=== PATIENT | female | born 1945 | race Caucasian/White ===

== ENCOUNTER 2020-10-29 10:38 | Emergency (ER) | payer MEDICARE, OTHER, SELFPAY ==
--- NOTE | ~2020-10-29 | XR_ITS ---
EXAMINATION: XR SHOULDER, RIGHT CLINICAL INFORMATION: Atraumatic shoulder pain. COMPARISON: No similar priors. TECHNIQUE: Four views of the right shoulder. FINDINGS: No evidence of acute fractures or malalignment. The humeral head is well-seated in the glenoid. There are mild degenerative changes in the acromioclavicular joint with joint space narrowing and subcortical sclerosis. No abnormal soft tissue calcifications. The visualized right lung is clear. XR/XR shoulder RT min 2V IMPRESSION: No acute fractures or malalignment. Mild osteoarthritis of the right acromioclavicular joint.
[2020-10-29 10:46] VITALS: BP 146/87; PULSE 96; O2SAT 98
--- NOTE | 2020-10-29 10:49 | ED.EXTPRO ---
HPI - Extremity Problem General Chief complaint: Extremity Problem Stated complaint: R SHOULDER PAIN X'S 2 WEEKS Time Seen by Provider: 10/29/20 10:48 Source: patient and EMS Mode of arrival: EMS Limitations: no limitations History of Present Illness HPI Narrative: This is a 75-year-old female with a past medical history of prior SD, presents to the emergency department via EMS with complaints of atraumatic shoulder pain X1 month. She states that the shoulder pain has been localized to her right shoulder, does not radiate and only hurts when she moves her shoulder, she describes the pain as soreness. She states she is able to move it painfully, but she needs to help move it with her other hand. She has taken ibuprofen with little relief. She has not had any shoulder surgeries. She denies chest pain, shortness of breath, numbness, tingling, paresthesias, abdominal pain and nausea, vomiting, fevers, chills. She denies trauma to the area MD Complaint: extremity pain (Right shoulder) Onset (ago): month(s) (One month) Pain Consistency: constant Location: right Severity scale (1-10): 7 (With movement) Quality: other (Soreness) Radiation: none Relieving factors: medication Exacerbating factors: range of motion Associated symptoms: denies other symptoms Related Data Previous Rx's Medication Instructions Recorded lidocaine 5 % topical patch 1 patch TOPICAL DAILY PRN #15 ea 10/29/20 (Lidoderm) naproxen 500 mg tablet 500 mg PO BID PRN #20 tab 10/29/20 Allergies Allergy/AdvReac Type Severity Reaction Status Date / Time No Known Allergies Allergy Unknown UNKNOWN Verified 10/29/20 10:55 [NO KNOWN ALLERGIES] Review of Systems Review of Systems: Constitutional: No Fever, No Chills ENT/Mouth: No sore throat, No Rhinorrhea, No Swallowing Difficulty Cardiovascular: No Chest Pain, No SOB, No Orthopnea, No Edema Respiratory: No Cough, No Sputum, No Wheezing, No dyspnea Gastrointestinal: No Nausea, No Vomiting, No Diarrhea, No abdominal Pain Genitourinary: No Dysuria, No Urinary Frequency, No Hematuria Musculoskeletal: + joint pain (right shoulder), No Myalgias Skin: No Skin Lesions, No rash Neuro: No Weakness, No Numbness, No Dizziness, No Headache Heme/Lymph: No Bruising, No Lymphadenopathy Endocrine: No Polyuria, No Polydipsia [facility] Past Medical History Attestation statement: The following information was validated with the patient. [facility] Narrative: Patient reports previous SD 2 years ago Medical History (Updated 10/29/20 @ 11:51 by ESVIN Yuan) No known health problems Social History Social History Advance Directives: Yes Advance Directives Information Provided: No Advance Directives on File: No Physical Exam Vital Signs: Vital Signs: Last Vital Signs Temp 98.0 F 10/29/20 10:53 Pulse 88 10/29/20 10:53 Resp 18 10/29/20 10:53 BP 143/72 H 10/29/20 10:53 Pulse Ox 95 10/29/20 10:53 Body Mass Index 24.5 Appearance: Alert. Oriented X3. No acute distress. Eyes: Pupils equal, round and reactive to light. ENT: Pharynx normal. Neck: Normal inspection. Neck supple. CVS: Normal heart rate and rhythm. Pulses normal. Respiratory: No respiratory distress. Breath sounds normal. Abdomen: Soft and nontender. +BS x4 Skin: Skin warm and dry. Normal skin color. Normal skin turgor. No rashes. Extremities: No lower extremity edema. + pain with active and passive range of motion to right shoulder, worse with inversion and eversion. Good distal pulses, no numbness or paresthesias, cap refil < 2 seconds. No tenderness to palpation of right shoulder. No overlying skin changes Neuro: Oriented X 3. No motor deficit. No sensory deficit. Course Course Course Narrative: This is a 75-year-old female PMHX of SD, presenting to emergency department with right-sided shoulder pain and some progressing over the past month. She states that it hurts with movement, and it is better at rest. She also mentions that she uses her other hand to raise her arm overhead. She denies any trauma to the area. She denies any other symptoms. She denies fevers, chills, chest pain, shortness of breath, abdominal pain, nausea, vomiting, diarrhea. Plan at this time is to obtain an x-ray of the right shoulder, and an EKG to rule out cardiac etiology. Right shoulder x-ray shows no acute fractures or malalignment. There is mild osteoarthritis of the right acromioclavicular joint. Plan is to discharge patient with anti-inflammatory medication and a sling MDM - Extremity (Nontraumatic) Imaging Data Right shoulder x-ray: Attestation: I personally reviewed and interpreted this imaging study as follows: Radiologist's impression: FINDINGS: No evidence of acute fractures or malalignment. The humeral head is well-seated in the glenoid. There are mild degenerative changes in the acromioclavicular joint with joint space narrowing and subcortical sclerosis. No abnormal soft tissue calcifications. The visualized right lung is clear.? XR/XR shoulder RT min 2V IMPRESSION: No acute fractures or malalignment. Mild osteoarthritis of the right acromioclavicular joint. ECG Data Attestation EKG: I personally reviewed and interpreted this ECG as follows: ECG interpretation date: 10/29/20 ECG interpretation time: 11:43 Prior ECG tracings: available for review Interpretation: Ventricular rate 84, IA interval normal QRS normal QT/QTC normal. Normal sinus rhythm with left axis deviation and incomplete left bundle-branch block. No ST elevations, no T-wave inversions, no acute ischemia noted. When compared with previous EKSs (03/30/19, and 02/26/2019) there are no significant changes. Procedures Orthopedic Splinting/Casting Injury #1: Side: right Upper Extremity Injury Location: shoulder Upper Extremity Immobilizer: sling/shoulder immobilizer (sling) Discharge Plan Discharge Clinical Impression: Tendinitis of right shoulder Osteoarthritis of right shoulder Qualifiers: Osteoarthritis type: unspecified Qualified Code(s): M19.011 - Primary osteoarthritis, right shoulder Patient Disposition: Home, Self-Care Instructions: Rotator Cuff Tendinitis (ED), Osteoarthritis (ED) Additional Instructions: Please do [id number] exercises at home, like explained to you in the emergency department. Wear a sling for 1-2 days. You may remove it to sleep Taking medications as prescribed, these are anti-inflammatory medications that will help ear pain, and will help reduce inflammation to the area. Take these with food Your x-ray did not show any fractures today, it showed arthritis It is important for you to follow-up with her PCP within the next few days. Follow-up with orthopedics if your pain does not improve in 2-3 weeks. Return to the emergency department with new or worsening symptoms Prescriptions: New naproxen 500 mg tablet 500 mg PO BID PRN (Reason: pain) Qty: 20 RF: 0 lidocaine [Lidoderm] 5 % adhesive patch,medicated 1 patch topical DAILY PRN (Reason: pain) Qty: 15 RF: 0 Referrals: Jeet Grijalva MD [Physician] - 2 weeks (If pain does not resolve within 2-3 weeks) Patrice Seymour MD [Primary Care Provider] - 2 days
[2020-10-29 10:53] VITALS: BP 143/72; PULSE 88; RESP 18; TEMP 36.7; O2SAT 95; BMI 24.5
--- NOTE | 2020-10-29 11:01 | ECG_ITS ---
Test Reason : SHOULDER PAIN Blood Pressure : / mmHG Vent. Rate : 084 BPM Atrial Rate : 084 BPM P-R Int : 176 ms QRS Dur : 120 ms QT Int : 408 ms P-R-T Axes : 045 -48 063 degrees QTc Int : 482 ms Normal sinus rhythm Left axis deviation Incomplete left bundle branch block Abnormal ECG When compared with ECG of 30-MAR-2019 14:05, Incomplete left bundle branch block is now Present ST no longer elevated in Inferior leads Referred By: Rosalinda Donis Electronically Signed By:ESTELLE BREWER
== END 2020-10-29 12:24 | disposition home or self-care (01) ==
PROVIDERS: Emergency Provider Emergency Medicine; PCP Internal Medicine
DX: M19.011 Primary osteoarthritis, right shoulder (principal); M75.31 Calcific tendinitis of right shoulder; M25.511 Pain in right shoulder; Z79.899 Other long term (current) drug therapy
CPT/HCPCS: 29105; 73030; 93005; 99283; 99284

== ENCOUNTER 2020-11-28 09:46 | Observation (INO) | payer MEDICARE, OTHER, SELFPAY ==
[2020-11-28] VITALS (8 sets, daily range): BP systolic 98–154; BP diastolic 55–74; PULSE 76–92; RESP 15–18; TEMP 36.5–37.3; O2SAT 92–98; BMI 21.2
--- NOTE | ~2020-11-28 | XR_ITS ---
EXAMINATION: CR X-RAY CHEST AND BILATERAL SHOULDERS CLINICAL INFORMATION: Weakness and bilateral shoulder decreased range of motion COMPARISON: Chest radiographs dated 03/30/2019, right shoulder radiographs dated 10/29/2020, left shoulder MRI dated 12/07/2012. TECHNIQUE: A single view of the chest and 4 views each of the bilateral shoulders were obtained. FINDINGS: Chest: Mild linear markings are seen at the right lung base. Probable eventration of the right hemidiaphragm. The right upper lung field and left lung are clear. The heart and mediastinal structures are unremarkable. There is a moderate to large hiatal hernia. Right shoulder: Mild right acromioclavicular degenerative joint changes are seen. The glenohumeral joint is intact without significant degenerative changes. The soft tissues are unremarkable. Left shoulder: Post surgical changes are seen in the left shoulder with resection of the acromion. The distal left clavicle is intact. Glenohumeral joint is intact. The soft tissues are unremarkable. XR/XR shoulder RT min 2V IMPRESSION: 1. Mild right basilar linear atelectasis versus scarring with probable eventration of the right hemidiaphragm. No definitive acute abnormality. 2. Mild right acromioclavicular joint space narrowing with normal alignment. Degenerative in nature. No acute abnormality. 3. Post surgical changes in the left shoulder without overt acute abnormality.
--- NOTE | ~2020-11-28 | CT_ITS ---
EXAMINATION: CT HEAD WITHOUT CONTRAST CLINICAL INFORMATION: Generalized weakness, worse in the right upper extremity for 2 weeks. Confusion. Unsure if fell. COMPARISON: CT head 04/06/2016 TECHNIQUE: Contiguous axial imaging was performed from the skull base to vertex without intravenous administration of contrast. This CT examination was performed using dose optimization techniques as appropriate, variously including the following: *Automated exposure control *Adjustment of mA and/or kV according to patient size (this includes techniques or standardized protocols for targeted exams where dose is matched to indication/reason for exam; i.e. extremities or head) *Use of iterative reconstruction technique DLP: 617 mGy-cm FINDINGS: There is no evidence of acute intracranial hemorrhage or territorial infarction. No abnormal mass effect or midline shift is seen. There is a somewhat wedge-shaped region of hypoattenuation with volume loss involving the anterior limb of the left internal capsule and pericaudate with mild expected dilation of the frontal horn of the left lateral ventricle corresponding with a prior infarction, late subacute to chronic. Bobo to white matter differentiation is otherwise well preserved. No extra-axial fluid collections are identified. There is a 3 mm calcification within the sylvian fissure (image 108, series 3) which was not seen on prior studies, though is of doubtful clinical significance. 2 additional similar cortical calcifications are seen along the posterior aspect of the corpus callosum (image 100, series 3). Other than the above-noted relative dilation of the frontal horn of the left lateral ventricle, ventricles and cortical sulci are normal in size and symmetric. The osseous structures and soft tissues are normal. The mastoid air cells and visualized portions of the paranasal sinuses are well aerated. CT/CT head/brain wo con IMPRESSION: Hypoattenuation in volume loss involving the anterior limb of the left internal capsule corresponding with a prior infarction not seen on the prior study. The region may correspond with the patient's right-sided weakness.
--- NOTE | ~2020-11-28 | XR_ITS ---
EXAMINATION: CR X-RAY CHEST AND BILATERAL SHOULDERS CLINICAL INFORMATION: Weakness and bilateral shoulder decreased range of motion COMPARISON: Chest radiographs dated 03/30/2019, right shoulder radiographs dated 10/29/2020, left shoulder MRI dated 12/07/2012. TECHNIQUE: A single view of the chest and 4 views each of the bilateral shoulders were obtained. FINDINGS: Chest: Mild linear markings are seen at the right lung base. Probable eventration of the right hemidiaphragm. The right upper lung field and left lung are clear. The heart and mediastinal structures are unremarkable. There is a moderate to large hiatal hernia. Right shoulder: Mild right acromioclavicular degenerative joint changes are seen. The glenohumeral joint is intact without significant degenerative changes. The soft tissues are unremarkable. Left shoulder: Post surgical changes are seen in the left shoulder with resection of the acromion. The distal left clavicle is intact. Glenohumeral joint is intact. The soft tissues are unremarkable. XR/XR chest 1V IMPRESSION: 1. Mild right basilar linear atelectasis versus scarring with probable eventration of the right hemidiaphragm. No definitive acute abnormality. 2. Mild right acromioclavicular joint space narrowing with normal alignment. Degenerative in nature. No acute abnormality. 3. Post surgical changes in the left shoulder without overt acute abnormality.
--- NOTE | ~2020-11-28 | XR_ITS ---
EXAMINATION: CR X-RAY CHEST AND BILATERAL SHOULDERS CLINICAL INFORMATION: Weakness and bilateral shoulder decreased range of motion COMPARISON: Chest radiographs dated 03/30/2019, right shoulder radiographs dated 10/29/2020, left shoulder MRI dated 12/07/2012. TECHNIQUE: A single view of the chest and 4 views each of the bilateral shoulders were obtained. FINDINGS: Chest: Mild linear markings are seen at the right lung base. Probable eventration of the right hemidiaphragm. The right upper lung field and left lung are clear. The heart and mediastinal structures are unremarkable. There is a moderate to large hiatal hernia. Right shoulder: Mild right acromioclavicular degenerative joint changes are seen. The glenohumeral joint is intact without significant degenerative changes. The soft tissues are unremarkable. Left shoulder: Post surgical changes are seen in the left shoulder with resection of the acromion. The distal left clavicle is intact. Glenohumeral joint is intact. The soft tissues are unremarkable. XR/XR shoulder LT min 2V IMPRESSION: 1. Mild right basilar linear atelectasis versus scarring with probable eventration of the right hemidiaphragm. No definitive acute abnormality. 2. Mild right acromioclavicular joint space narrowing with normal alignment. Degenerative in nature. No acute abnormality. 3. Post surgical changes in the left shoulder without overt acute abnormality.
--- NOTE | 2020-11-28 10:11 | ECG_ITS ---
Test Reason : weakness Blood Pressure : / mmHG Vent. Rate : 085 BPM Atrial Rate : 085 BPM P-R Int : 158 ms QRS Dur : 074 ms QT Int : 382 ms P-R-T Axes : 037 006 017 degrees QTc Int : 454 ms Normal sinus rhythm Low voltage QRS Intra-ventricular conduction delay Nonspecific T wave abnormality Anterior leads Abnormal ECG QRS duration has decreased T wave inversion more evident in Anterior leads Clinical Correlation Advised Referred By: Sylvia Rivas Electronically Signed By:CR BEAN MD
--- NOTE | 2020-11-28 10:44 | ED.WEAKNESS ---
HPI - Weakness General Chief complaint: Weakness Stated complaint: GENERAL WEAKNESS X 2 WEEKS Time Seen by Provider: 11/28/20 10:07 Source: patient and EMS Mode of arrival: EMS History of Present Illness HPI Narrative: 75-year-old female with a PMHx of prior IA, presenting to the ED complaining of generalized weakness, greater in RUE x2 weeks. Reports unable to lift arms secondary to pain/weakness. Denies fever, chills, cough, CP/SOB, abdominal pain, nausea/vomiting, dysuria/hematuria, falls. Lives home alone, at baseline ambulates with walker Related Data Home Medications Medication Instructions Recorded Confirmed alprazolam 0.5 mg tablet 1 tab PO BID PRN 11/28/20 11/28/20 atorvastatin 80 mg tablet 1 tab PO DAILY 11/28/20 11/28/20 cholestyramine-aspartame 4 gram 0.5 ea PO DAILY 11/28/20 11/28/20 oral powder (Cholestyramine Light) dicyclomine 10 mg capsule 1 cap PO TID 11/28/20 11/28/20 lisinopril 10 mg tablet 1 tab PO DAILY 11/28/20 11/28/20 metoprolol tartrate 25 mg tablet 1 tab PO BID 11/28/20 11/28/20 ticagrelor 90 mg tablet (Brilinta) 1 tab PO BID 11/28/20 11/28/20 tramadol 50 mg tablet 1 tab PO BID PRN 11/28/20 11/28/20 Allergies Allergy/AdvReac Type Severity Reaction Status Date / Time No Known Allergies Allergy Unknown UNKNOWN Verified 10/29/20 10:55 [NO KNOWN ALLERGIES] Review of Systems Review of Systems: Constitutional: No Fever, No Chills,No Fatigue, No Malaise ENT/Mouth: No Ear Pain, No sore throat, No Rhinorrhea Eyes: No Eye Pain, No Swelling, No Redness Cardiovascular: No Chest Pain, No SOB Respiratory: No Cough, No Dyspnea Gastrointestinal: No Nausea, No Vomiting, No Diarrhea, No Constipation, No Abdominal pain Genitourinary: No Dysuria, No Urinary Frequency, No Hematuria, No Flank Pain Musculoskeletal: No joint pain, No Myalgias, No Joint Swelling Skin: No Skin Lesions, No rash Neuro: + Weakness, No Numbness, No Paresthesias, No Loss of Consciousness, No Dizziness, No Headache Yes all other systems are reviewed and are negative Neurologic: Denies Abnormal speech present [facility] Past Medical History Attestation statement: The following information was validated with the patient. Medical History (Updated 11/28/20 @ 12:35 by ESVIN [place]) No known health problems Social History Social History Advance Directives: No Advance Directives Information Provided: No Physical Exam Vital Signs: Vital Signs: Last Vital Signs Temp 99.2 F 11/28/20 09:48 Pulse 84 11/28/20 10:15 Resp 17 11/28/20 10:15 BP 143/74 H 11/28/20 10:15 Pulse Ox 97 11/28/20 10:15 Body Mass Index 21.2 Const: General: cooperative and healthy appearing Orientation/consciousness: oriented to person and oriented to place HENMT: Head: Yes normal to inspection and Yes atraumatic Ears: hearing grossly normal bilaterally General nose exam: Normal external nose present Face and sinus: Yes normal facial exam Eyes: General: appearance normal, both eyes and all related structures Pupils: Equal, round and reactive pupils present EOM: EOMs intact bilaterally Neck: Neck: Yes normal visual inspection and Yes no meningeal signs Resp: Effort & Inspection: normal respiratory effort Auscultation: clear to auscultation bilaterally, no rales, no rhonchi and no wheezes Cardio: Rate: regular rate Heart sounds: S1 normal heart sound present and S2 normal heart sound present GI: Inspection: Yes normal to inspection Palpation (GI): Soft to palpation, nontender, no guarding and not rigid Skin: Rashes: no rashes Wounds: no wounds Neuro: General: oriented to person, oriented to place, tone normal, moves all extremities, no meningeal signs, no focal motor deficits and CN's II-XI intact bilaterally Cranial nerves: Yes Equal, round and reactive pupils present Speech: No Abnormal speech present Gait exam (Neuro): Normal gait present Motor exam (neuro): 5/5 motor strength present throughout and no tremor noted Extrem: Other: + bilateral shoulder tenderness and decreased ROM General: Yes normal to inspection Course Course Course Narrative: -1158--no leukocytosis, labs otherwise unremarkable. UA infected >> IV Rocephin ordered -1230--CT head/brain wo con IMPRESSION: Hypoattenuation in volume loss involving the anterior limb of the left internal capsule corresponding with a prior infarction not seen on the prior study. The region may correspond with the patient's right-sided weakness. XR chest 1V / XR shoulder LT min 2V / XR shoulder RT min 2V IMPRESSION: 1. Mild right basilar linear atelectasis versus scarring with probable eventration of the right hemidiaphragm. No definitive acute abnormality. 2. Mild right acromioclavicular joint space narrowing with normal alignment. Degenerative in nature. No acute abnormality. 3. Post surgical changes in the left shoulder without overt acute abnormality. ? >> plan is for admission MDM - Weakness MDM Narrative Medical decision making narrative: 75-year-old female with a PMHx of prior IA, presenting to the ED complaining of generalized weakness, greater in RUE x2 weeks. On exam vital signs stable, NAD, A&O x2, confused, bilateral shoulder tenderness with decreased ROM of bilateral arms, exam otherwise nonfocal. Concern for CVA vs metabolic abnormalities or infectious etiology. Plan: EKG, labs, UA, CXR, head CT, anticipated admission Medical Records Attestation: I reviewed the patient's medical records. Lab Data Attestation: I reviewed the patient's lab results. Result diagrams: 11/28/20 10:58 11/28/20 10:58 Labs: Lab Results 11/28/20 11/28/20 11/28/20 Range/Units 10:58 10:58 10:58 WBC 9.0 (4.8-10.8) X10*3/uL RBC 3.94 L (4.20-5.50) X10*6/uL Hgb 12.0 (12.0-16.0) g/dl Hct 36.9 L (37-47) % MCV 93.7 (80-98) fL MCH 30.5 (27.0-33.0) pg MCHC 32.5 (31.0-35.0) g/dl RDW 12.9 (11.0-16.0) % Plt Count 275 (160-400) X10*3/uL MPV 9.6 (9.4-12.3) fL Immature Gran % (Auto) 0.3 (0.0-0.4) % Neut % (Auto) 82.9 H (45-73) % Lymph % (Auto) 9.3 L (20-40) % [place] % (Auto) 6.6 (2-11) % Eos % (Auto) 0.7 (0-4) % Baso % (Auto) 0.2 (0-2) % Lymph # (Auto) 0.8 L (1.2-4.9) X10*3/uL [place] # (Auto) 0.6 (0.1-1.2) X10*3/uL Eos # (Auto) 0.1 (0.0-0.4) X10*3/uL Baso # (Auto) 0.0 (0.0-0.2) X10*3/uL Abs Immat Gran (auto) 0.03 (0.00-0.03) X10*3/uL Absolute Neuts (auto) 7.5 (2.0-8.3) X10*3/uL Absolute Nucleated RBC 0.000 (0.0-0.012) X10*3/uL Nucleated RBC % (auto) 0.0 (0.0-0.2) /100WBC Sodium 139 (135-145) mmol/L Potassium 4.2 (3.3-5.1) mmol/L Chloride 104 (96-108) mmol/L Carbon Dioxide 23 (22-29) mmol/L Anion Gap 16 (12-20) BUN 13 (9-16) mg/dL Creatinine 0.65 (0.5-1.4) mg/dL Estim Creat Clear Calc 72.7 Estimated GFR > 60 Random Glucose 101 (60-115) mg/dL Calcium 8.5 (8.4-10.2) mg/dL Magnesium 1.8 (1.6-2.6) mg/dL Total Bilirubin 0.6 (0.0-1.0) mg/dL Direct Bilirubin 0.2 (0.0-0.5) mg/dL AST 24 (5-31) U/L ALT 15 (0-31) U/L Alkaline Phosphatase 109 (39-117) U/L Troponin I High Sens 8.6 (<3.5-17.0) ng/L Total Protein 7.0 (6.5-8.0) g/dL Albumin 3.7 (3.5-5.0) g/dL Lipase 13 (8-78) U/L Urine Color Urine Appearance Urine pH (5.0-8.0) Ur Specific [place] (1.005-1.025) Urine Protein (NEG-TRACE) MG/DL Urine Glucose (UA) (NEG) MG/DL Urine Ketones (NEG) MG/DL Urine Blood (NEG) Urine Nitrite (NEG) Ur Leukocyte Esterase (NEG) Urine RBC (0) /HPF Urine WBC (0-4) /HPF Ur Squamous Epith Cells /LPF Urine Bacteria /LPF Urine Mucus /LPF COVID-19 ([facility]) (Negative) COVID-19 Clin Com 11/28/20 11/28/20 Range/Units 10:59 10:59 WBC (4.8-10.8) X10*3/uL RBC (4.20-5.50) X10*6/uL Hgb (12.0-16.0) g/dl Hct (37-47) % MCV (80-98) fL MCH (27.0-33.0) pg MCHC (31.0-35.0) g/dl RDW (11.0-16.0) % Plt Count (160-400) X10*3/uL MPV (9.4-12.3) fL Immature Gran % (Auto) (0.0-0.4) % Neut % (Auto) (45-73) % Lymph % (Auto) (20-40) % [place] % (Auto) (2-11) % Eos % (Auto) (0-4) % Baso % (Auto) (0-2) % Lymph # (Auto) (1.2-4.9) X10*3/uL [place] # (Auto) (0.1-1.2) X10*3/uL Eos # (Auto) (0.0-0.4) X10*3/uL Baso # (Auto) (0.0-0.2) X10*3/uL Abs Immat Gran (auto) (0.00-0.03) X10*3/uL Absolute Neuts (auto) (2.0-8.3) X10*3/uL Absolute Nucleated RBC (0.0-0.012) X10*3/uL Nucleated RBC % (auto) (0.0-0.2) /100WBC Sodium (135-145) mmol/L Potassium (3.3-5.1) mmol/L Chloride (96-108) mmol/L Carbon Dioxide (22-29) mmol/L Anion Gap (12-20) BUN (9-16) mg/dL Creatinine (0.5-1.4) mg/dL Estim Creat Clear Calc Estimated GFR Random Glucose (60-115) mg/dL Calcium (8.4-10.2) mg/dL Magnesium (1.6-2.6) mg/dL Total Bilirubin (0.0-1.0) mg/dL Direct Bilirubin (0.0-0.5) mg/dL AST (5-31) U/L ALT (0-31) U/L Alkaline Phosphatase (39-117) U/L Troponin I High Sens (<3.5-17.0) ng/L Total Protein (6.5-8.0) g/dL Albumin (3.5-5.0) g/dL Lipase (8-78) U/L Urine Color YELLOW Urine Appearance CLEAR Urine pH 6.0 (5.0-8.0) Ur Specific [place] <= 1.005 (1.005-1.025) Urine Protein NEG (NEG-TRACE) MG/DL Urine Glucose (UA) NEG (NEG) MG/DL Urine Ketones NEG (NEG) MG/DL Urine Blood TRACE (NEG) Urine Nitrite NEG (NEG) Ur Leukocyte Esterase 3+ H (NEG) Urine RBC 0-2 (0) /HPF Urine WBC 10-14 H (0-4) /HPF Ur Squamous Epith Cells 1+ /LPF Urine Bacteria TRACE /LPF Urine Mucus TRACE /LPF COVID-19 ([facility]) Negative (Negative) COVID-19 Clin Com See Note Discharge Plan Discharge Clinical Impression: Acute UTI, AMS (altered mental status), Weakness, CVA (cerebral vascular accident) Patient Disposition: Admitted As Inpatient Prescriptions: No Action atorvastatin 80 mg tablet 1 tab PO DAILY RF: 0 tramadol 50 mg tablet 1 tab PO BID PRN (Reason: Pain) RF: 0 alprazolam 0.5 mg tablet 1 tab PO BID PRN (Reason: Anxiety) RF: 0 lisinopril 10 mg tablet 1 tab PO DAILY RF: 0 dicyclomine 10 mg capsule 1 cap PO TID RF: 0 metoprolol tartrate 25 mg tablet 1 tab PO BID RF: 0 Cholestyramine Light 4 gram powder 0.5 ea PO DAILY RF: 0 Brilinta 90 mg tablet 1 tab PO BID RF: 0
[2020-11-28 11:04] LABS: MANUAL DIFF FLAG NO
[2020-11-28 11:06] LABS: Basophils Percent Auto 0.2 % (0-2); Eosinophils Absolute Auto 0.1 X10*3/uL (0.0-0.4); Eosinophils Percent Auto 0.7 % (0-4); Hematocrit 36.9 % (37-47); Imm Gran Abs Auto 0.03 X10*3/uL (0.00-0.03); Imm Gran Pct Auto 0.3 % (0.0-0.4); Lymphocytes Absolute Auto 0.8 X10*3/uL (1.2-4.9); Lymphocytes Percent Auto 9.3 % (20-40); Mean Corpuscular HGB Conc 32.5 g/dl (31.0-35.0); Mean Corpuscular Hemoglobin 30.5 pg (27.0-33.0); Mean Corpuscular Volume 93.7 fL (80-98); Mean Platelet Volume 9.6 fL (9.4-12.3); Monocytes Absolute Auto 0.6 X10*3/uL (0.1-1.2); Monocytes Percent Auto 6.6 % (2-11); Neutrophils Absolute Auto 7.5 X10*3/uL (2.0-8.3); Neutrophils Percent Auto 82.9 % (45-73); Platelet Count 275 X10*3/uL (160-400); Red Blood Count 3.94 X10*6/uL (4.20-5.50); Red Cell Distribution Width 12.9 % (11.0-16.0)
[2020-11-28 11:18] LABS: Appearance Urine CLEAR; Color Urine YELLOW; Glucose Urine UA NEG (NEG); Leukocyte Esterase Urine 3+ (NEG); Nitrite Urine NEG (NEG); Specific Gravity - Urine <= 1.005 (1.005-1.025); UACC Culture Trigger YES; Urine Blood TRACE (NEG); Urine Ketones NEG (NEG); Urine Protein NEG (NEG-TRACE)
[2020-11-28 11:26] LABS: Alanine Aminotransferase 15 U/L (0-31); Albumin Level 3.7 g/dL (3.5-5.0); Alkaline Phosphatase 109 U/L (39-117); Anion Gap 16 (12-20); Aspartate Amino Transferase 24 U/L (5-31); Bilirubin Direct 0.2 mg/dL (0.0-0.5); Bilirubin Total 0.6 mg/dL (0.0-1.0); Blood Urea Nitrogen 13 mg/dL (9-16); Calcium 8.5 mg/dL (8.4-10.2); Carbon Dioxide 23 mmol/L (22-29); Chloride 104 mmol/L (96-108); Creatinine Clr Calc Pharmacy 72.7; Estimated Glomerular Filt Rate > 60; Glucose Random 101 mg/dL (60-115); Lipase 13 U/L (8-78); Magnesium 1.8 mg/dL (1.6-2.6); Potassium 4.2 mmol/L (3.3-5.1); Sodium 139 mmol/L (135-145)
[2020-11-28 11:28] LABS: Troponin-I High Sensitivity 8.6 ng/L (<3.5-17.0)
--- NOTE | 2020-11-28 11:39 | PC.NURSE ---
pt c/o generalized weakness that is worse in her RUE than her left that started in October. she reports that she is unable to lift her arms because of the pain and weakness. she denies chest pain/sob/ fever/chills/cough. no abdominal pain, nausea/vomiting. pt lives at home alone, she ambulates with a walker. Pt denies falling. pt has positive bilateral shoulder tenderness and decreased rom. vss. pt alert, oriented x3.
[2020-11-28 11:41] LABS: RBC Urine 0-2 /HPF (0)
[2020-11-28 11:42] LABS: Bacteria Urine TRACE /LPF; Mucus Urine TRACE /LPF; Squamous Epithelial Cell Urine 1+ /LPF
[2020-11-28 11:48] LABS: COVID-19 Test Negative (Negative)
--- NOTE | 2020-11-28 12:15 | PC.NURSE ---
pt alert and oriented, vss. pt requested to go to the restroom multiple times, she was ambulated to the restroom with minimal assist from staff. denies sob/headache/dizziness. Commode place at her bedside. Pt seen by Physical Therapy. lunch given. vss.
[2020-11-28] MEDS: cefTRIAXone sodium 1 GM in 0.9 % Sodium Chloride 50 ML IV (12:46)
[2020-11-28] MEDS: Acetaminophen 325 MG TABLET 650 MG PO ×2 (13:59→20:36)
--- NOTE | 2020-11-28 14:10 | P.HPHOSP_ITS ---
History of Present Illness Date of Service: 11/28/20 <ESVIN Valentine - Last Filed: 11/28/20 14:49> Attending physician on admission: Hussein Thomas <ESVIN Valentine - Last Filed: 11/28/20 14:49> Chief Complaint: Generalized weakness; right shoulder pain <ESVIN Valentine - Last Filed: 11/28/20 14:49> This a 70 female with history of CAD/STEMI in March 2019, anxiety, hypertension who presents to the ED with weakness. She said today she was feeling weak. Because she lives by herself and does not have any family she did not know what to do so she called 911 and they brought her to the emergency department. She denies any specific symptoms including chest pain, shortness of breath, abdominal pain, nausea, vomiting or dysuria. She does not endorse right shoulder pain which has been ongoing for the past 1 month. She was evaluated for shoulder pain in the emergency department on October 29 and diagnosed with osteoarthritis. She was discharged home with plans to follow-up with ortho, she has an appointment scheduled for later this year. She denies any change in her right arm pain. She does report that the pain radiates down her right arm into all of her fingers including her thumb. She has decreased range of motion at her right shoulder. She denies any speech difficulties or vision changes. Basic labs were done and were unremarkable. A urinalysis was checked and was noted to have positive leuk esterase and white cells and that she was given a dose of IV ceftriaxone. She had a CT scan of her brain which showed a hypodensity which was not present on her previous brain CT from 2017. Due to this abnormality admission was requested for further workup. <ESVIN Valentine - Last Filed: 11/28/20 14:49> Review of Systems Review of Systems: Yes all other systems are reviewed and are negative <ESVIN Valentine Last Filed: 11/28/20 14:49> Constitutional: Constitutional: Denies chills, Denies fever(s) and Reports weakness <ESVIN Valentine Last Filed: 11/28/20 14:49> Eyes: Eyes: Denies change in vision <ESVIN Valentine Last Filed: 11/28/20 14:49> ENT: Denies dysphagia <ESVIN Valentine - Last Filed: 11/28/20 14:49> Cardiovascular: Cardiovascular: Denies chest pain <ESVIN Valentine - Last Filed: 11/28/20 14:49> Respiratory: Respiratory: Denies cough <ESVIN Valentine - Last Filed: 11/28/20 14:49> Gastrointestinal: Gastrointestinal: Denies abdominal pain, Denies dysphagia, Denies nausea and Denies vomiting <ESVIN Valentine - Last Filed: 11/28/20 14:49> Genitourinary: Genitourinary: Denies dysuria <ESVIN Valentine - Last Filed: 11/28/20 14:49> Neurologic: Reports weakness <ESVIN Valentine - Last Filed: 11/28/20 14:49> FOR[facility]LY [facility] Medical History: Medical History (Updated 11/29/20 @ 13:07 by ESVIN Valentine) Anxiety CAD (coronary artery disease) HTN (hypertension) IBS (irritable bowel syndrome) Osteoarthritis <ESVIN Valentine - Last Filed: 11/28/20 14:49> Functional capacity: uses cane/walker <ESVIN Valentine - Last Filed: 11/28/20 14:49> Pertinent family history: no known history of CAD <ESVIN Valentine - Last Filed: 11/28/20 14:49> Surgical History: Surgical History (Updated 11/28/20 @ 14:23 by ESVIN Valentine) History of cholecystectomy <ESVIN Valentine - Last Filed: 11/28/20 14:49> Social History: Social History (Updated 11/28/20 @ 14:23 by ESVIN Valentine) Household Members: None Alcohol intake: former Patient Tobacco Use Status: Former Tobacco user service: No Current occupational status: retired and disabled <ESVIN Valentine - Last Filed: 11/28/20 14:49> Meds Allergies/Adverse reactions: Allergies Allergy/AdvReac Type Severity Reaction Status Date / Time No Known Allergies Allergy Unknown UNKNOWN Verified 10/29/20 10:55 [NO KNOWN ALLERGIES] <ESVIN Valentine - Last Filed: 11/28/20 14:49> Active Medications: Current Medications Acetaminophen (Acetaminophen 325 Mg Tablet) 650 mg PO Q6H PRN PRN Reason: Pain, Mild (Pain Scale 1-3) Alprazolam (Alprazolam 0.5 Mg Tablet) 0.5 mg PO BID PRN PRN Reason: Anxiety Atorvastatin Calcium (Atorvastatin Calcium 80 Mg Tablet) 80 mg PO DAILY ASHU Dicyclomine HCl (Dicyclomine Hcl 10 Mg Capsule) 10 mg PO TID ASHU Docusate Sodium (Docusate Sodium 100 Mg Capsule) 100 mg PO DAILY PRN PRN Reason: Constipation Heparin Sodium (Porcine) (Heparin Sodium,Porcine 5,000 Unit/Ml Vial) 5,000 unit SUBCUT Q12H ASHU Lisinopril (Lisinopril 10 Mg Tablet) 10 mg PO DAILY ASHU; Protocol Metoprolol Tartrate (Metoprolol Tartrate 25 Mg Tablet) 25 mg PO BID ASHU; Protocol Non-Formulary Medication (Cholestyramine-Aspartame [Cholestyramine Light]) 0.5 each PO DAILY ASHU Ondansetron HCl (Ondansetron Hcl 4 Mg/2 Ml Vial) 4 mg IVPUSH Q8H PRN PRN Reason: Nausea and Vomiting Pharmacy Consult (Consult Rx Perform Med Rec) 1 each MISCELLANE ONCE PRN PRN Reason: Consult order Sodium Chloride (0.9 % Sodium Chloride Flush 3 Ml Syringe) 3 ml IVFLUSH QSHIFT [facility] Ticagrelor (Ticagrelor 90 Mg Tablet) 90 mg PO BID [facility] Tramadol HCl (Tramadol Hcl 50 Mg Tablet) 50 mg PO BID PRN PRN Reason: Pain <ESVIN Valentine - Last Filed: 11/28/20 14:49> Home medications: Home Medications Medication Instructions Recorded Confirmed Last Taken Type alprazolam 0.5 mg tablet 1 tab PO BID PRN 11/28/20 11/28/20 11/28/20 History atorvastatin 80 mg tablet 1 tab PO DAILY 11/28/20 11/28/20 11/28/20 History cholestyramine-aspartame 4 gram 0.5 ea PO DAILY 11/28/20 11/28/20 11/28/20 History oral powder (Cholestyramine Light) dicyclomine 10 mg capsule 1 cap PO TID 11/28/20 11/28/20 11/28/20 History lisinopril 10 mg tablet 1 tab PO DAILY 11/28/20 11/28/20 11/28/20 History metoprolol tartrate 25 mg tablet 1 tab PO BID 11/28/20 11/28/20 11/28/20 History ticagrelor 90 mg tablet (Brilinta) 1 tab PO BID 11/28/20 11/28/20 11/28/20 History tramadol 50 mg tablet 1 tab PO BID PRN 11/28/20 11/28/20 11/28/20 History <ESVIN Valentine Last Filed: 11/28/20 14:49> Physical Exam Vital Signs and Narrative: Vital Signs: Last Vital Signs Temp 99.2 F 11/28/20 09:48 Pulse 84 11/28/20 10:15 Resp 17 11/28/20 10:15 BP 143/74 H 11/28/20 10:15 Pulse Ox 97 11/28/20 10:15 Body Mass Index 21.2 <ESVIN Valentine - Last Filed: 11/28/20 14:49> Const: General: cooperative, comfortable, no acute distress, alert and awake <ESVIN Valentine Last Filed: 11/28/20 14:49> Orientation/consciousness: patient oriented x3 <ESVIN Valentine Last Filed: 11/28/20 14:49> HENMT: Head: Yes normal to inspection <ESVIN Valentine Last File d: 11/28/20 14:49> Eyes: Sclerae: sclerae normal <ESVIN Valentine Last Filed: 11/28/20 14:49> Pupils: Equal, round and reactive pupils present <ESVIN Valentine Last Filed: 11/28/20 14:49> EOM: EOMs intact bilaterally <ESVIN Valentine Last Filed: 11/28/20 14:49> Resp: Effort & Inspection: normal respiratory effort and able to speak in complete sentences <ESVIN Valenitne Last Filed: 11/28/20 14:49> Auscultation: clear to auscultation bilaterally <ESVIN Valentine - Last Filed: 11/28/20 14:49> Cardio: Rate: regular rate <ESVIN Valentine - Last Filed: 11/28/20 14:49> Rhythm: regular rhythm <ESVIN Valentine - Last Filed: 11/28/20 14:49> GI: Palpation (GI): Soft to palpation and nontender <ESVIN Valentine - Last Filed: 11/28/20 14:49> Neuro: General: patient oriented x3 <ESVIN Valentine - Last Filed: 11/28/20 14:49> Cranial nerves: Yes CN's II-XII intact bilaterally, Yes Equal, round and reactive pupils present and Yes Midline tongue present <ESVIN Valentine - Last Filed: 11/28/20 14:49> Extrem: Other: no leg edema;RUE ROM limited with AROM and PROM; equal integration analyst strength b/l; b/l legs with equal strength b/l <ESVIN Valentine - Last Filed: 11/28/20 14:49> Results Labs CBC and Chem 7: : 11/28/20 10:58 11/28/20 10:58 <ESVIN Valentine - Last Filed: 11/28/20 14:49> Labs: Laboratory Results - last 24 hr 11/28/20 11/28/20 11/28/20 10:58 10:58 10:58 MCV 93.7 MCH 30.5 MCHC 32.5 RDW 12.9 Plt Count 275 MPV 9.6 Immature Gran % (Auto) 0.3 Neut % (Auto) 82.9 H Lymph % (Auto) 9.3 L [place] % (Auto) 6.6 Eos % (Auto) 0.7 Baso % (Auto) 0.2 Lymph # (Auto) 0.8 L [place] # (Auto) 0.6 Eos # (Auto) 0.1 Baso # (Auto) 0.0 Abs Immat Gran (auto) 0.03 Absolute Neuts (auto) 7.5 Absolute Nucleated RBC 0.000 Nucleated RBC % (auto) 0.0 Anion Gap 16 Estim Creat Clear Calc 72.7 Estimated GFR > 60 Random Glucose 101 Calcium 8.5 Magnesium 1.8 Total Bilirubin 0.6 Direct Bilirubin 0.2 AST 24 ALT 15 Alkaline Phosphatase 109 Troponin I High Sens 8.6 Total Protein 7.0 Albumin 3.7 Lipase 13 Urine Color Urine Appearance Urine pH Ur Specific Downs Urine Protein Urine Glucose (UA) Urine Ketones Urine Blood Urine Nitrite Ur Leukocyte Esterase Urine RBC Urine WBC Ur Squamous Epith Cells Urine Bacteria Urine Mucus COVID-19 ([facility]) COVID-19 Clin Com 11/28/20 11/28/20 10:59 10:59 MCV MCH MCHC RDW Plt Count MPV Immature Gran % (Auto) Neut % (Auto) Lymph % (Auto) [place] % (Auto) Eos % (Auto) Baso % (Auto) Lymph # (Auto) [place] # (Auto) Eos # (Auto) Baso # (Auto) Abs Immat Gran (auto) Absolute Neuts (auto) Absolute Nucleated RBC Nucleated RBC % (auto) Anion Gap Estim Creat Clear Calc Estimated GFR Random Glucose Calcium Magnesium Total Bilirubin Direct Bilirubin AST ALT Alkaline Phosphatase Troponin I High Sens Total Protein Albumin Lipase Urine Color YELLOW Urine Appearance CLEAR Urine pH 6.0 Ur Specific Downs <= 1.005 Urine Protein NEG Urine Glucose (UA) NEG Urine Ketones NEG Urine Blood TRACE Urine Nitrite NEG Ur Leukocyte Esterase 3+ H Urine RBC 0-2 Urine WBC 10-14 H Ur Squamous Epith Cells 1+ Urine Bacteria TRACE Urine Mucus TRACE COVID-19 ([facility]) Negative COVID-19 Clin Com See Note <ESVIN Valentine - Last Filed: 11/28/20 14:49> Imaging Radiologist's Impressions: Impressions Head CT 11/28/20 10:35 IMPRESSION: Hypoattenuation in volume loss involving the anterior limb of the left internal capsule corresponding with a prior infarction not seen on the prior study. The region may correspond with the patient's right-sided weakness. Chest X-Ray 11/28/20 10:36 IMPRESSION: 1. Mild right basilar linear atelectasis versus scarring with probable eventration of the right hemidiaphragm. No definitive acute abnormality. 2. Mild right acromioclavicular joint space narrowing with normal alignment. Degenerative in nature. No acute abnormality. 3. Post surgical changes in the left shoulder without overt acute abnormality. Shoulder X-Ray 11/28/20 10:48 IMPRESSION: 1. Mild right basilar linear atelectasis versus scarring with probable eventration of the right hemidiaphragm. No definitive acute abnormality. 2. Mild right acromioclavicular joint space narrowing with normal alignment. Degenerative in nature. No acute abnormality. 3. Post surgical changes in the left shoulder without overt acute abnormality. Shoulder X-Ray 11/28/20 10:48 IMPRESSION: 1. Mild right basilar linear atelectasis versus scarring with probable eventration of the right hemidiaphragm. No definitive acute abnormality. 2. Mild right acromioclavicular joint space narrowing with normal alignment. Degenerative in nature. No acute abnormality. 3. Post surgical changes in the left shoulder without overt acute abnormality. <ESVIN Valentine - Last Filed: 11/28/20 14:49> Assessment and Plan (1) Abnormal brain CT: Status: Acute <ESVIN Valentine - Last Filed: 11/28/20 14:49> This is a 75-year-old female with a history of hypertension, anxiety, CAD/STEMI, osteoarthritis who presents to the emergency department with generalized weakness found to have abnormality on brain CT Abnormal brain CT Hypoattenuation involving the anterior limb of the left internal capsule not seen on previous brain CT from 2016 No focal neurological deficits noted Continue home Brilinta, statin Neurology consult Right arm pain Likely related to osteoarthritis although does have radiation into hand PT eval Continue with scheduled ortho appointment as outpatient pyuria no symptoms of UTI given ceftriaxone empirically in ED FU UCx CAD h/o STEMI treated at [facility] in Mar 2019 Continue lopressor, brilinta, lipitor HTN continue Lisinopril, lopressor dvt - heparin code status - full code attending: dr. thomas <ESVIN Valentine - Last Filed: 11/28/20 14:49> This is a 75-year-old female with a history of hypertension, anxiety, CAD/STEMI, osteoarthritis who presents to the emergency department with generalized weakness found to have abnormality on brain CT Abnormal brain CT Hypoattenuation involving the anterior limb of the left internal capsule not seen on previous brain CT from 2017 No focal neurological deficits noted Continue home Brilinta, statin Neurology consult Right arm pain Likely related to osteoarthritis although does have radiation into hand PT eval Continue with scheduled ortho appointment as outpatient pyuria no symptoms of UTI given ceftriaxone empirically in ED FU UCx CAD h/o STEMI treated at [facility] in Mar 2019 Continue lopressor, brilinta, lipitor HTN continue Lisinopril, lopressor dvt - heparin code status - full code attending: dr. thomas I saw and examined the patient with mid level provider, we discussed findings inlucding labs, imaging, medication, assessment and plan and I agree with above <Husseinraisa Thomas MD - Last Filed: 11/30/20 16:45> Quality Stroke Does the patient have a stroke diagnosis?: No <ESVIN Valentine - Last Filed: 11/28/20 14:49> VTE Prior VTE?: No <ESVIN Valentine - Last Filed: 11/28/20 14:49> VTE Risk Level:: Medical - moderate - high <ESVIN Valentine - Last Filed: 11/28/20 14:49> VTE Device Contraindication: N/A - Device Ordered <ESVIN Valentine - Last Filed: 11/28/20 14:49> VTE Drug Contraindication: N/A - Med Ordered <ESVIN Valentine - Last Filed: 11/28/20 14:49>
--- NOTE | 2020-11-28 15:36 | PC.NURSE ---
pt admitted to [facility] room 4444, report given to ANUP Veliz. Pt will be transported to the unit by remotely operated vehicle. Pt aware of plan of care.
[2020-11-28] MEDS: Heparin Sodium,Porcine 5,000 UNIT/ML VIAL 5000 UNIT SUBCUT (16:36)
[2020-11-28] MEDS: Dicyclomine HCl 10 MG CAPSULE PO ×2 (16:36→20:36)
[2020-11-28] MEDS: 0.9 % Sodium Chloride Flush 3 ML SYRINGE IVFLUSH ×2 (16:37→20:36)
[2020-11-28] MEDS: traMADoL HCL 50 MG TABLET PO (16:47)
[2020-11-28] MEDS: Metoprolol Tartrate 25 MG TABLET PO (20:36)
[2020-11-28] MEDS: Ticagrelor 90 MG TABLET PO (20:36)
[2020-11-28] MEDS: ALPRAZolam 0.5 MG TABLET PO (20:39)
[2020-11-29 03:13] VITALS: BP 141/70; PULSE 67; RESP 20; TEMP 37.1; O2SAT 98
[2020-11-29 07:13] VITALS: BP 150/74; PULSE 82; RESP 18; TEMP 36.2; O2SAT 94
[2020-11-29 07:55] VITALS: BP 150/74; PULSE 82
[2020-11-29] MEDS: lisinopriL 10 MG TABLET PO (07:55)
[2020-11-29] MEDS: Dicyclomine HCl 10 MG CAPSULE PO ×2 (07:55→13:24)
[2020-11-29] MEDS: Acetaminophen 325 MG TABLET 650 MG PO (07:55)
[2020-11-29] MEDS: Ticagrelor 90 MG TABLET PO (07:55)
[2020-11-29 07:56] VITALS: BP 150/74; PULSE 82
[2020-11-29] MEDS: Metoprolol Tartrate 25 MG TABLET PO (07:56)
[2020-11-29] MEDS: Cholestyramine (With Sugar) 4 GM POWD.PACK 2 GM PO (07:56)
[2020-11-29] MEDS: Atorvastatin Calcium 80 MG TABLET PO (07:56)
[2020-11-29] MEDS: 0.9 % Sodium Chloride Flush 3 ML SYRINGE IVFLUSH (07:56)
[2020-11-29] MEDS: traMADoL HCL 50 MG TABLET PO (07:59)
--- NOTE | 2020-11-29 10:19 | MHC.CM.PN ---
Patient lives in apartment alone. Has [facility] for observation (patient's words) 1x's week, no other services and owns walker and cane; does not drive. Emily Sheffield takes her to appointments when she can. Per MD this am, patient may need SNF for D/C, but needs a PT eval first. D/C plan TBD. HCP completed today with patient and two case advocate and furnished in chart. CM to follow.
--- NOTE | 2020-11-29 10:25 | HO.PM.IMPN ---
Subjective Subjective Date of Service: 11/29/20 Interval History: seen and examined this morning follow up for right arm/shoulder pain/abnormal brain CT sill having right shoulder pain. no dysuria; no confusion Review of Systems Review of Systems: Yes all other systems are reviewed and are negative Constitutional Constitutional: Denies chills and Denies fever(s) Cardiovascular Cardiovascular: Denies chest pain and Denies palpitations Respiratory Respiratory: Denies cough Gastrointestinal Gastrointestinal: Denies abdominal pain, Denies diarrhea, Denies nausea and Denies vomiting Genitourinary Genitourinary: Denies dysuria and Denies urinary urgency Endocrine Endocrine: Denies palpitations Physical Exam Vital Signs: Vital Signs: Last Vital Signs Temp 97.2 F 11/29/20 07:13 Pulse 82 11/29/20 07:56 Resp 18 11/29/20 07:13 BP 150/74 H 11/29/20 07:56 Pulse Ox 94 11/29/20 07:13 Body Mass Index 21.2 Const: General: cooperative, comfortable, no acute distress, alert and awake Orientation/consciousness: patient oriented x3 HENMT: Head: Yes normal to inspection Eyes: Sclerae: sclerae normal Pupils: Equal, round and reactive pupils present EOM: EOMs intact bilaterally Resp: Effort & Inspection: normal respiratory effort and able to speak in complete sentences Auscultation: clear to auscultation bilaterally Cardio: Rate: regular rate Rhythm: regular rhythm GI: Palpation (GI): Soft to palpation and nontender Neuro: General: patient oriented x3 Cranial nerves: Yes CN's II-XII intact bilaterally, Yes Equal, round and reactive pupils present and Yes Midline tongue present Extrem: Other: no leg edema;RUE ROM limited with AROM and PROM; equal documentation nurse strength b/l; b/l legs with equal strength b/l; Left shoulder also with decreased ROM Objective Data Active Medications Acetaminophen (Acetaminophen 325 Mg Tablet) 650 mg PO Q6H PRN PRN Reason: Pain, Mild (Pain Scale 1-3) Last Admin: 11/29/20 07:55 Dose: 650 mg Documented by: DARIAN Alprazolam (Alprazolam 0.5 Mg Tablet) 0.5 mg PO BID PRN PRN Reason: Anxiety Last Admin: 11/28/20 20:39 Dose: 0.5 mg Documented by: GIOVANI Atorvastatin Calcium (Atorvastatin Calcium 80 Mg Tablet) 80 mg PO DAILY [facility] Last Admin: 11/29/20 07:56 Dose: 80 mg Documented by: DARIAN Cholestyramine Resin (Cholestyramine (With Sugar) 4 Gm Powd.Pack) 2 gm PO DAILY [facility] Last Admin: 11/29/20 07:56 Dose: 2 gm Documented by: DARIAN Dicyclomine HCl (Dicyclomine Hcl 10 Mg Capsule) 10 mg PO TID [facility] Last Admin: 11/29/20 07:55 Dose: 10 mg Documented by: DARIAN Docusate Sodium (Docusate Sodium 100 Mg Capsule) 100 mg PO DAILY PRN PRN Reason: Constipation Heparin Sodium (Porcine) (Heparin Sodium,Porcine 5,000 Unit/Ml Vial) 5,000 unit SUBCUT Q12H [facility] Last Admin: 11/29/20 02:44 Dose: Not Given Documented by: ANTRONNIE Non-Admin Reason: Patient Asleep Lisinopril (Lisinopril 10 Mg Tablet) 10 mg PO DAILY [facility]; Protocol Last Admin: 11/29/20 07:55 Dose: 10 mg Documented by: DARIAN Metoprolol Tartrate (Metoprolol Tartrate 25 Mg Tablet) 25 mg PO BID [facility]; Protocol Last Admin: 11/29/20 07:56 Dose: 25 mg Documented by: DARIAN Ondansetron HCl (Ondansetron Hcl 4 Mg/2 Ml Vial) 4 mg IVPUSH Q8H PRN PRN Reason: Nausea and Vomiting Pharmacy Consult (Consult Rx Perform Med Rec) 1 each MISCELLANE ONCE PRN PRN Reason: Consult order Sodium Chloride (0.9 % Sodium Chloride Flush 3 Ml Syringe) 3 ml IVFLUSH QSHIFT [facility] Last Admin: 11/29/20 07:56 Dose: 3 ml Documented by: DARIAN Ticagrelor (Ticagrelor 90 Mg Tablet) 90 mg PO BID [facility] Last Admin: 11/29/20 07:55 Dose: 90 mg Documented by: DARIAN Tramadol HCl (Tramadol Hcl 50 Mg Tablet) 50 mg PO BID PRN PRN Reason: Pain Last Admin: 11/29/20 07:59 Dose: 50 mg Documented by: DARIAN Labs CBC & Chem 7: 11/28/20 10:58 11/28/20 10:58 Labs: Laboratory Results - last 24 hr 11/28/20 11/28/20 11/28/20 10:58 10:58 10:58 MCV 93.7 MCH 30.5 MCHC 32.5 RDW 12.9 Plt Count 275 MPV 9.6 Immature Gran % (Auto) 0.3 Neut % (Auto) 82.9 H Lymph % (Auto) 9.3 L Greene % (Auto) 6.6 Eos % (Auto) 0.7 Baso % (Auto) 0.2 Lymph # (Auto) 0.8 L Greene # (Auto) 0.6 Eos # (Auto) 0.1 Baso # (Auto) 0.0 Abs Immat Gran (auto) 0.03 Absolute Neuts (auto) 7.5 Absolute Nucleated RBC 0.000 Nucleated RBC % (auto) 0.0 Anion Gap 16 Estim Creat Clear Calc 72.7 Estimated GFR > 60 Random Glucose 101 Calcium 8.5 Magnesium 1.8 Total Bilirubin 0.6 Direct Bilirubin 0.2 AST 24 ALT 15 Alkaline Phosphatase 109 Troponin I High Sens 8.6 Total Protein 7.0 Albumin 3.7 Lipase 13 Urine Color Urine Appearance Urine pH Ur Specific [place] Urine Protein Urine Glucose (UA) Urine Ketones Urine Blood Urine Nitrite Ur Leukocyte Esterase Urine RBC Urine WBC Ur Squamous Epith Cells Urine Bacteria Urine Mucus COVID-19 ([facility]) COVID-19 Clin Com 11/28/20 11/28/20 10:59 10:59 MCV MCH MCHC RDW Plt Count MPV Immature Gran % (Auto) Neut % (Auto) Lymph % (Auto) Greene % (Auto) Eos % (Auto) Baso % (Auto) Lymph # (Auto) Greene # (Auto) Eos # (Auto) Baso # (Auto) Abs Immat Gran (auto) Absolute Neuts (auto) Absolute Nucleated RBC Nucleated RBC % (auto) Anion Gap Estim Creat Clear Calc Estimated GFR Random Glucose Calcium Magnesium Total Bilirubin Direct Bilirubin AST ALT Alkaline Phosphatase Troponin I High Sens Total Protein Albumin Lipase Urine Color YELLOW Urine Appearance CLEAR Urine pH 6.0 Ur Specific [place] <= 1.005 Urine Protein NEG Urine Glucose (UA) NEG Urine Ketones NEG Urine Blood TRACE Urine Nitrite NEG Ur Leukocyte Esterase 3+ H Urine RBC 0-2 Urine WBC 10-14 H Ur Squamous Epith Cells 1+ Urine Bacteria TRACE Urine Mucus TRACE COVID-19 ([facility]) Negative COVID-19 Clin Com See Note Assessment and Plan (1) Abnormal brain CT: Status: Acute (2) Right shoulder pain: Status: Acute Assessment and Plan: This is a 75-year-old female with a history of hypertension, anxiety, CAD/STEMI, osteoarthritis who presents to the emergency department with generalized weakness found to have abnormality on brain CT Abnormal brain CT Hypoattenuation involving the anterior limb of the left internal capsule not seen on previous brain CT from 2017 No focal neurological deficits noted Continue home Brilinta, statin Neurology consult Right arm pain Likely related to osteoarthritis PT eval Continue with scheduled ortho appointment as outpatient pyuria no symptoms of UTI given ceftriaxone empirically in ED FU UCx CAD h/o STEMI treated at [facility] in Mar 2019 Continue lopressor, brilinta, lipitor HTN continue Lisinopril, lopressor dvt - heparin code status - full code dispo - will need PT eval due to limited mobility b/l upper extremities attending: dr. Pfeiffer Quality Stroke Does the patient have a stroke diagnosis?: No VTE Prior VTE?: No VTE Risk Level:: Medical - moderate - high VTE Device Contraindication: N/A - Device Ordered VTE Drug Contraindication: N/A - Med Ordered
[2020-11-29 11:40] VITALS: BP 111/53; PULSE 76; RESP 17; TEMP 36.3; O2SAT 95
--- NOTE | 2020-11-29 12:40 | PM.NEUROCN ---
History of Present Illness Data of Consult Service Date: 11/29/20 Primary Care Provider: Unknown Physician HPI Reason for consult: generalized weakness 75 yr woman with h/o anxiety and right shoulder pain admitted with generalized weakness with no focality. UA shows evidence of UTI, rest normal. 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 It may well have been silent because of its location. It has no bearing to her current complaints. Review of Systems Review of Systems: Constitutional: No Fever, No Chills,No Fatigue, No Malaise ENT/Mouth: No Ear Pain, No sore throat, No Rhinorrhea Eyes: No Eye Pain, No Swelling, No Redness Cardiovascular: No Chest Pain, No SOB Respiratory: No Cough, No Dyspnea Gastrointestinal: No Nausea, No Vomiting, No Diarrhea, No Constipation, No Abdominal pain Genitourinary: No Dysuria, No Urinary Frequency, No Hematuria, No Flank Pain Musculoskeletal: No joint pain, No Myalgias, No Joint Swelling Skin: No Skin Lesions, No rash Neuro: + Weakness, No Numbness, No Paresthesias, No Loss of Consciousness, No Dizziness, No Headache Yes all other systems are reviewed and are negative Constitutional: Constitutional: Denies chills, Denies fever(s) and Reports weakness Eyes: Eyes: Denies change in vision ENT: Denies dysphagia Cardiovascular: Cardiovascular: Denies chest pain and Denies palpitations Respiratory: Respiratory: Denies cough Gastrointestinal: Gastrointestinal: Denies abdominal pain, Denies dysphagia, Denies diarrhea, Denies nausea and Denies vomiting Neurologic: Denies Abnormal speech present and Reports weakness Endocrine: Endocrine: Denies palpitations [facility] Past Medical History Medical History (Updated 11/29/20 @ 10:34 by ESVIN Valentine) Anxiety CAD (coronary artery disease) HTN (hypertension) IBS (irritable bowel syndrome) Osteoarthritis Functional capacity: uses cane/walker Family History Pertinent family history: no known history of CAD Surgical History Surgical History (Updated 11/28/20 @ 14:23 by ESVIN Valentine) History of cholecystectomy Social History Social History (Updated 11/28/20 @ 14:23 by ESVIN Valentine) Household Members: None Alcohol intake: former Patient Tobacco Use Status: Former Tobacco user Smoked in Last 30 Days: No Use of substances other than those prescribed or required for medical reasons: No Advance Directives: No Advance Directives Information Provided: No service: No Current occupational status: retired and disabled Meds Allergies Allergy/AdvReac Type Severity Reaction Status Date / Time No Known Allergies Allergy Unknown UNKNOWN Verified 10/29/20 10:55 [NO KNOWN ALLERGIES] Active Medications: Current Medications Acetaminophen (Acetaminophen 325 Mg Tablet) 650 mg PO Q6H PRN PRN Reason: Pain, Mild (Pain Scale 1-3) Last Admin: 11/29/20 07:55 Dose: 650 mg Documented by: Alprazolam (Alprazolam 0.5 Mg Tablet) 0.5 mg PO BID PRN PRN Reason: Anxiety Last Admin: 11/28/20 20:39 Dose: 0.5 mg Documented by: Atorvastatin Calcium (Atorvastatin Calcium 80 Mg Tablet) 80 mg PO DAILY [facility] Last Admin: 11/29/20 07:56 Dose: 80 mg Documented by: Cholestyramine Resin (Cholestyramine (With Sugar) 4 Gm Powd.Pack) 2 gm PO DAILY [facility] Last Admin: 11/29/20 07:56 Dose: 2 gm Documented by: Dicyclomine HCl (Dicyclomine Hcl 10 Mg Capsule) 10 mg PO TID [facility] Last Admin: 11/29/20 07:55 Dose: 10 mg Documented by: Docusate Sodium (Docusate Sodium 100 Mg Capsule) 100 mg PO DAILY PRN PRN Reason: Constipation Heparin Sodium (Porcine) (Heparin Sodium,Porcine 5,000 Unit/Ml Vial) 5,000 unit SUBCUT Q12H [facility] Last Admin: 11/29/20 02:44 Dose: Not Given Documented by: Lisinopril (Lisinopril 10 Mg Tablet) 10 mg PO DAILY [facility]; Protocol Last Admin: 11/29/20 07:55 Dose: 10 mg Documented by: Metoprolol Tartrate (Metoprolol Tartrate 25 Mg Tablet) 25 mg PO BID [facility]; Protocol Last Admin: 11/29/20 07:56 Dose: 25 mg Documented by: Ondansetron HCl (Ondansetron Hcl 4 Mg/2 Ml Vial) 4 mg IVPUSH Q8H PRN PRN Reason: Nausea and Vomiting Pharmacy Consult (Consult Rx Perform Med Rec) 1 each MISCELLANE ONCE PRN PRN Reason: Consult order Sodium Chloride (0.9 % Sodium Chloride Flush 3 Ml Syringe) 3 ml IVFLUSH QSHIFT [facility] Last Admin: 11/29/20 07:56 Dose: 3 ml Documented by: Ticagrelor (Ticagrelor 90 Mg Tablet) 90 mg PO BID [facility] Last Admin: 11/29/20 07:55 Dose: 90 mg Documented by: Tramadol HCl (Tramadol Hcl 50 Mg Tablet) 50 mg PO BID PRN PRN Reason: Pain Last Admin: 11/29/20 07:59 Dose: 50 mg Documented by: Home Medications Medication Instructions Recorded Confirmed Last Taken Type alprazolam 0.5 mg tablet 1 tab PO BID PRN 11/28/20 11/28/20 11/28/20 History atorvastatin 80 mg tablet 1 tab PO DAILY 11/28/20 11/28/20 11/28/20 History cholestyramine-aspartame 4 gram 0.5 ea PO DAILY 11/28/20 11/28/20 11/28/20 History oral powder (Cholestyramine Light) dicyclomine 10 mg capsule 1 cap PO TID 11/28/20 11/28/20 11/28/20 History lisinopril 10 mg tablet 1 tab PO DAILY 11/28/20 11/28/20 11/28/20 History metoprolol tartrate 25 mg tablet 1 tab PO BID 11/28/20 11/28/20 11/28/20 History ticagrelor 90 mg tablet (Brilinta) 1 tab PO BID 11/28/20 11/28/20 11/28/20 History tramadol 50 mg tablet 1 tab PO BID PRN 11/28/20 11/28/20 11/28/20 History Physical Exam Vital Signs: Vital Signs: Last Vital Signs Temp 97.3 F 11/29/20 11:40 Pulse 76 11/29/20 11:40 Resp 17 11/29/20 11:40 BP 111/53 L 11/29/20 11:40 Pulse Ox 95 11/29/20 11:40 Body Mass Index 21.2 Const: General: cooperative, healthy appearing, comfortable, no acute distress, alert and awake Orientation/consciousness: oriented to person, oriented to place and patient oriented x3 HENMT: Head: Yes normal to inspection and Yes atraumatic Ears: hearing grossly normal bilaterally General nose exam: Normal external nose present Face and sinus: Yes normal facial exam Eyes: General: appearance normal, both eyes and all related structures Sclerae: sclerae normal Pupils: Equal, round and reactive pupils present EOM: EOMs intact bilaterally Neck: Neck: Yes normal visual inspection and Yes no meningeal signs Resp: Effort & Inspection: normal respiratory effort and able to speak in complete sentences Auscultation: clear to auscultation bilaterally, no rales, no rhonchi and no wheezes Cardio: Rate: regular rate Rhythm: regular rhythm Heart sounds: S1 normal heart sound present and S2 normal heart sound present GI: Inspection: Yes normal to inspection Palpation (GI): Soft to palpation, nontender, no guarding and not rigid Skin: Rashes: no rashes Wounds: no wounds Neuro: Other: Non focal General: oriented to person, oriented to place, patient oriented x3, tone normal, moves all extremities, no meningeal signs, no focal motor deficits and CN's II-XI intact bilaterally Cranial nerves: Yes CN's II-XII intact bilaterally, Yes Equal, round and reactive pupils present and Yes Midline tongue present Speech: No Abnormal speech present Gait exam (Neuro): Normal gait present Motor exam (neuro): 5/5 motor strength present throughout and no tremor noted Extrem: Other: no leg edema;RUE ROM limited with AROM and PROM; equal assessment services manager strength b/l; b/l legs with equal strength b/l; Left shoulder also with decreased ROM General: Yes normal to inspection Results Labs CBC & Chem 7: 11/28/20 10:58 11/28/20 10:58 Microbiology Microbiology Results: Microbiology 11/28/20 Unknown Urine clean catch - Clean Catch Midstream Urine Culture - Final Assessment and Plan (1) Abnormal brain CT: Status: Acute CT brain shows old/ 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 It may well have been silent because of its location. It has no bearing to her current complaints. (2) Right shoulder pain: Status: Acute MRI C spine to r/o cervical root compression C6 (3) Acute UTI: Status: Acute treat UTI This is a 75-year-old female with a history of hypertension, anxiety, CAD/STEMI, osteoarthritis who presents to the emergency department with generalized weakness found to have abnormality on brain CT Abnormal brain CT Hypoattenuation involving the anterior limb of the left internal capsule not seen on previous brain CT from 2017 No focal neurological deficits noted Continue home Brilinta, statin Neurology consult Right arm pain Likely related to osteoarthritis PT eval Continue with scheduled ortho appointment as outpatient pyuria no symptoms of UTI given ceftriaxone empirically in ED FU UCx CAD h/o STEMI treated at [facility] in Mar 2019 Continue lopressor, brilinta, lipitor HTN continue Lisinopril, lopressor dvt - heparin code status - full code dispo - will need PT eval due to limited mobility b/l upper extremities attending: dr. Pfeiffer Procedures Date of Service Date of Service: 11/29/20
--- NOTE | 2020-11-29 13:07 | PM.DS ---
DS: Providers Provider Date of Service: 11/29/20 Date of admission: 11/28/20 14:00 Date of discharge: 11/29/20 Primary care physician: Unknown Physician Consults: 11/28/20 14:00 Consult to Neurology Routine Consulting Provider: [facility] Reason for consultation: abnormal brain CT; generalized weakness; right arm pain Has provider been notified: No Attending physician on discharge: Austyn Pfeiffer Discharging clinician: Juana Cortes DS: Diagnosis Discharge Diagnosis (1) Abnormal brain CT: Status: Acute (2) Right shoulder pain: Status: Acute DS: Summary Hospital Course Hospital Course: From H&P on day of admission This a 70 female with history of CAD/STEMI in March 2019, anxiety, hypertension who presents to the ED with weakness.? She said today she was feeling weak. Because she lives by herself and does not have any family she did not know what to do so she called 911 and they brought her to the emergency department.? She denies any specific symptoms including chest pain, shortness of breath, abdominal pain, nausea, vomiting or dysuria.? She does not endorse right shoulder pain which has been ongoing for the past 1 month.? She was evaluated for shoulder pain in the emergency department on October 29 and diagnosed with osteoarthritis.? She was discharged home with plans to follow-up with ortho, she has an appointment scheduled for later this year.? She denies any change in her right arm pain.? She does report that the pain radiates down her right arm into all of her fingers including her thumb.? She has decreased range of motion at her right shoulder.? She denies any speech difficulties or vision changes.? Basic labs were done and were unremarkable.? A urinalysis was checked and was noted to have positive leuk esterase and white cells and that she was given a dose of IV ceftriaxone.? She had a CT scan of her brain which showed a hypodensity which was not present on her previous brain CT from 2017. Due to this abnormality admission was requested for further workup. She was admitted to telemetry for close monitoring given abnormal brain CT. She was not noted to have any focal neurological deficits. She was evaluated by Neurology who agreed that her CT scan was consistent with an old stroke. No further workup was required. Patient had no symptoms of UTI and her urine culture returned negative. Right shoulder pain is likely secondary to osteoarthritis. She was evaluated by Physical therapy who recommended home with PT services. She is recommended to follow up with her PCP for additional home services if she qualifies. She has an appointment with Orthopedics scheduled for later this year which she is encouraged to keep. She can continue to use Ultram at home as needed for pain or alternatively may use Tylenol. Time Spent with Patient Time attestation: Total time spent providing and/or coordinating discharge services: Discharge coordination time: Greater than 30 minutes Quality: Stroke Does the patient have a stroke diagnosis?: No Physical Exam Vital Signs: Vital Signs: Last Vital Signs Temp 97.3 F 11/29/20 11:40 Pulse 76 11/29/20 11:40 Resp 17 11/29/20 11:40 BP 111/53 L 11/29/20 11:40 Pulse Ox 95 11/29/20 11:40 Body Mass Index 21.2 Const: General: cooperative, comfortable, no acute distress, alert and awake Orientation/consciousness: patient oriented x3 HENMT: Head: Yes normal to inspection Eyes: Sclerae: sclerae normal Pupils: Equal, round and reactive pupils present EOM: EOMs intact bilaterally Resp: Effort & Inspection: normal respiratory effort and able to speak in complete sentences Auscultation: clear to auscultation bilaterally Cardio: Rate: regular rate Rhythm: regular rhythm GI: Palpation (GI): Soft to palpation and nontender Neuro: General: patient oriented x3 Cranial nerves: Yes CN's II-XII intact bilaterally, Yes Equal, round and reactive pupils present and Yes Midline tongue present Extrem: Other: no leg edema;RUE ROM limited with AROM and PROM; equal law enforcement instructor strength b/l; b/l legs with equal strength b/l; Left shoulder also with decreased ROM Discharge Plan Discharge Patient Disposition: Home Health Service Discharge Diagnosis: chronic stroke Right shoulder pain Referrals: Physician,Unknown J [Primary Care Provider] - 1 Week Discharge Medications: Continued atorvastatin 80 mg tablet 1 tab PO DAILY [facility]: 0 tramadol 50 mg tablet 1 tab PO BID PRN (Reason: Pain) RF: 0 alprazolam 0.5 mg tablet 1 tab PO BID PRN (Reason: Anxiety) RF: 0 lisinopril 10 mg tablet 1 tab PO DAILY RF: 0 dicyclomine 10 mg capsule 1 cap PO TID [facility]: 0 metoprolol tartrate 25 mg tablet 1 tab PO BID RF: 0 Cholestyramine Light 4 gram powder 0.5 ea PO DAILY [facility]: 0 Brilinta 90 mg tablet 1 tab PO BID RF: 0 Discharge Orders: Discharge Order (Routine); Ordered 11/29/20 Ordered By: Juana Cortes Diet: advance to usual diet Activity on Discharge: As tolerated Stand Alone Forms: Patient Portal Discharge page Care Plan Goals: stay healthy and out of the hospital Health Concerns: Right shoulder pain Stroke Plan of Treatment: Your CT scan of the brain shows evidence of an old stroke. There were no new changes. No further workup required at this time Shoulder pain. Likely secondary to osteoarthritis. He will be discharged home with home physical therapy. Please keep outpatient appointment with Orthopedics. You can continue to use ultram for pain or use tylenol. Assessment: 75 year old female admitted for abnormal brain CT found to have chronic stroke
--- NOTE | 2020-11-29 13:23 | MHC.CM.PN ---
D/C order; home w/home health. Met with patient, she is in agreement for [facility]. Will place referral.
[2020-11-29] MEDS: oxyCODONE HCl Immed Release 5 MG TABLET PO (13:24)
--- NOTE | 2020-11-29 13:26 | W.MHC.F2F ---
Service Date Service Date: 11/29/20 Encounter Date of encounter: 11/29/20 Reasons for Services Reason for physical therapy: home safety and mobility, therapeutic exercises and restore joint function Overseeing Care: Patrice Seymour Homebound: Leaving the home is medically contraindicated at this time without the asist of a device and/or another person due th the listed conditions above and below. Reason homebound: pain with ambulation and poor balance / fall risk Certification: Based on the above findings, I certify that this patient is confined to the home and needs intermittent nursing home care, physical therapy and/or speech therapy, or continues to need occupational therapy. The patient is under my care, and I have initiated the establishment of the plan of care. The patient will be followed by a physician who will periodically review the plan of care.
--- NOTE | 2020-11-29 13:27 | MHC.CM.PN ---
Reviewed D/C plan with patient's nurse; patient would need VNA who could offer [employer]: goal to increase amount of [facility] services in the home (self care, nutrition, etc), [employer] [employer] to work with [facility] to increase services following D/C. Patient in agreement with additional referral to [facility].
--- NOTE | 2020-11-29 14:47 | MHC.CM.PN ---
Referrals out to 3 [facility]NAs; [facility] only response w/a behavioral health nurse conducting duties of older adult social work specialist in the home. [facility] to admit patient on to services for tomorrow. Transport scheduled for patient today for 3:0o pm worm picker to home.
== END 2020-11-29 15:02 | disposition home health service (06) ==
LOC: HO.ED 12:35 → HO.EDOVER 14:14 → HO.IMC 14:19
PROVIDERS: Physician Assistant; Admitting Provider Physician Assistant Medical; Emergency Provider Emergency Medicine; PCP Internal Medicine; Visit Provider Physician Assistant Medical
DX: R90.89 Other abnormal findings on diagnostic imaging of central nervous system (principal); M25.511 Pain in right shoulder; N39.0 Urinary tract infection, site not specified; R41.82 Altered mental status, unspecified; R53.1 Weakness; G93.89 Other specified disorders of brain; I21.3 ST elevation (STEMI) myocardial infarction of unspecified site; I25.119 Atherosclerotic heart disease of native coronary artery with unspecified angina pectoris; I10 Essential (primary) hypertension; F41.9 Anxiety disorder, unspecified; Z20.822 Contact with and (suspected) exposure to COVID-19; Z87.891 Personal history of nicotine dependence; Z86.73 Personal history of transient ischemic attack (TIA), and cerebral infarction without residual deficits; Z91.81 History of falling; Z90.49 Acquired absence of other specified parts of digestive tract; Z23 Encounter for immunization; Z79.899 Other long term (current) drug therapy
CPT/HCPCS: 36415; 70450; 71045; 73030; 80048; 80076; 81001; 83690; 83735; 84484; 85025; 87086; 87635; 90471; 90686; 93005; 96365; 96372; 96375; 97161; 99219; 99285; J0696

== ENCOUNTER → 2021-01-11 11:25 | Outpatient (BNVA) | payer MEDICARE, OTHER, SELFPAY | PROVIDERS: PCP Internal Medicine; Visit Provider Orthopaedic Surgery | DX: M75.101 Unspecified rotator cuff tear or rupture of right shoulder, not specified as traumatic (principal); M12.811 Other specific arthropathies, not elsewhere classified, right shoulder; M12.812 Other specific arthropathies, not elsewhere classified, left shoulder; M75.102 Unspecified rotator cuff tear or rupture of left shoulder, not specified as traumatic | CPT/HCPCS: 20610; 99202; J1100 ==

== ENCOUNTER 2021-03-02 14:54 | Outpatient (REF) | payer MEDICARE, MEDICAID, SELFPAY ==
--- NOTE | 2021-03-02 16:13 | MHC.AU.ANR ---
Adult Audiological Evaluation Date of Visit: 03/02/21 Reason for Appointment: Ms. Pinon was seen for a hearing evaluation due to concerns of decreased hearing abilities. Patient reports decreased hearing bilaterally, however, she feels the left ear is significantly worse than the right ear. Ms. Pinon was diagnosed with [place] Palsy, which affected the left side of her face, years ago. Since then, she has noticed unilateral tinnitus in the left ear. Additionally, she feels like her hearing has decreased more significantly in the past few years. She reports having to ask for many repetitions. Ms. Pinon had 35 years of occupational noise exposure while working for a local [employer]. Does patient feel they have a hearing loss?: Yes If Yes, Which Ear?: Left Ear When Was Hearing Difficulty First Noticed?: Many years ago Has hearing been tested previously?: No Hearing Handicap Inventory: HHIE SCORE: 8 Based on HHIE score, patient has: No perceived hearing handicap Ear History: Bothersome Tinnitus/Ringing/Noises in Ears: Left Ear Ear used on the phone: Left Ear History of occupational noise exposure?: Yes: 35 years, [place] Medical History: Medical History: High Blood Pressure, Stroke Medical History (Other): Medical history includes gall bladder surgery, heart attack, anxiety, irritable bowel syndrome, high cholesterol, heart failure/angina, and [place] Palsy. Allergies: NKA Medication List: Aspirin, Alprazolam, Probiotic, Dicyclomine, Lisinopril, Metoprolol, Glucosamine, Atorvastatin Otoscopy: Right Ear: Partially occluded with cerumen Left Ear: Partially occluded with cerumen Tympanometry: Tympanometry performed due to: To assess integrity of the middle ear system Right Ear: Normal Middle Ear System (Type A) Left Ear: Normal Middle Ear System (Type A) Hearing Evaluation: Transducer(s) Used: Circumaural Headphones, Bone Conduction Method: Conventional Audiometry Stimuli Used: Pure Tones Right Ear: Description of Hearing: Normal hearing at 250 Hz sloping to a mild to profound sensorineural hearing loss from 500-8000 Hz. A 15 dBHL asymmetry with right ear being worse is noted at 6000 Hz. Left Ear: Description of Hearing: Normal hearing at 250 Hz sloping to a mild to severe sensorineural hearing loss from 500-8000 Hz. A 20 dB asymmetry with left ear being worse is noted at 3000 Hz. Speech Recognition Threshold (SRT): Method Used: Monitored Live Voice Stimuli Used: Spondee Words Right Ear: 55 dB HL Left Ear: 60 dB HL Word Discrimination: Method: Recorded Lists Word Lists Used: NU-6 Right Ear: 68% at 85 dB HL Left Ear: 64% at 85 dB HL Recommendations: Audiological re-evaluation if changes are noted. Audiological re-evaluation in one year. Trial with amplification is recommended. Hearing aids were discussed briefly. Recommended Ms. Pinon contact her health insurance companies to determine if she has hearing aid benefits and where they could be used. She should make a hearing aid evaluation appointment to discuss obtaining hearing devices in a location that will accept her possible hearing aid benefits, or at our clinic if she decides she would like to pursue hearing aids here. Given slight asymmetry, annual audiological re-evaluations are recommended to monitor the status of her hearing. Diagnosis: Primary Diagnosis: H90.3 Bilateral Sensorineural Hearing Loss Secondary Diagnosis: H93.12 Tinnitus, Left Ear Services Performed: Services Performed: Comprehensive Audiological Evaluation (CPT 44219) Tympanometry (CPT 11295) Signature: Student/Clinical Fellow: Yes: Vita Mtz B.A., Sherita Anesthesiologist/Physician I have reviewed/agreed with student/fellow documentation: Yes Provider: Sherita Edmond, [facility] [place]
== END 2021-03-02 14:55 | disposition home or self-care (01) ==
LOC: HO.SH 14:54
PROVIDERS: Visit Provider Internal Medicine
DX: Z01.118 Encounter for examination of ears and hearing with other abnormal findings (principal); H90.3 Sensorineural hearing loss, bilateral; H93.12 Tinnitus, left ear
CPT/HCPCS: 92557; 92567